=== PATIENT | female | born 1985 | race American Indian/Alaskan Native ===

== ENCOUNTER 2020-08-23 18:34 | Emergency (ER) | payer SELFPAY ==
[2020-08-23 19:17] VITALS: BP 133/79
[2020-08-23] MEDS ORDERED: TETRACAINE 0.5% OPHTH SOLN 4ML OU PRN (20:40)
[2020-08-23] MEDS ORDERED: IBUPROFEN 600 MG TAB PO ONE (20:40)
[2020-08-23] MEDS ORDERED: FLUORESCEIN 1 MG STRIP OP ONE (20:40)
[2020-08-24] MEDS ORDERED: FLUORESCEIN 1 MG STRIP OP ONE (02:19)
--- NOTE | 2020-08-24 03:50 | Emergency Department Report ---
ED Eye Problem HPI - General Chief complaint: Eye Problems Stated complaint: RT EYE INJURY Source: patient Mode of arrival: Ambulatory Limitations: Language Barrier - History of Present Illness Initial comments: Patient is a 34-year-old female with no past medical history presents to the ED with complaint of acute onset persistent severe bilateral eye pain, worse in the right eye with thick purulent discharge bilaterally for 2 days after a piece of debris entered accidentally into her right eye. Patient states that she has been feeling foreign body sensation in the right eye with photophobia and that she developed purulent bilateral eye discharge in the last 24 hours. Patient denies vision loss, headache, fever, chills, nausea, vomiting, dizziness, syncope or traumatic injury. MD chief complaint: eye pain, eye redness, eye injury, other (purulent discharge bilaterally) -: Sudden, days(s) (2) Onset Description: sudden, other (debris entered right eye) Location: right eye Place: home If Injury: other (debris entered right eye 2 days ago) Eye Symptoms: burning, redness, pain, foreign body sensation, discharge, photophobia Severity: severe Severity scale (0 -10): 7 If Pain, Quality: sharp, throbbing Consistency: constant Context: injury Associated Symptoms: denies: headache, neck pain, nausea/vomiting, cough, rhinorrhea, fever, shortness of breath Treatments Prior to Arrival: irrigated eye - Related Data Patient Tetanus UTD: Yes Previous Rx's Medication Instructions Recorded Last Taken Type Ciprofloxacin HCl [Ciloxan] 1 drop OP Q4H #5 ml 08/24/20 Unknown Rx Ibuprofen [Motrin] 800 mg PO Q8HR PRN #24 tablet 08/24/20 Unknown Rx Allergies Allergy/AdvReac Type Severity Reaction Status Date / Time No Known Allergies Allergy Unverified 08/24/20 02:19 ED Review of Systems ROS: Stated complaint: RT EYE INJURY Other details as noted in HPI Constitutional: denies: chills, fever Eyes: eye pain (Right thigh pain), eye discharge (Bilateral eye purulent discharge). denies: vision change ENT: denies: ear pain, throat pain Respiratory: denies: cough, shortness of breath, wheezing Cardiovascular: denies: chest pain, palpitations Endocrine: no symptoms reported Gastrointestinal: denies: abdominal pain, nausea, vomiting, diarrhea Genitourinary: denies: urgency, dysuria, discharge Musculoskeletal: denies: back pain, joint swelling, arthralgia Skin: denies: rash, lesions Neurological: denies: headache, weakness, paresthesias Psychiatric: denies: anxiety, depression Hematological/Lymphatic: denies: easy bleeding, easy bruising ED Past Medical Hx - Medications Home Medications: Home Medications Medication Instructions Recorded Confirmed Last Taken Type Ciprofloxacin HCl [Ciloxan] 1 drop OP Q4H #5 ml 08/24/20 Unknown Rx Ibuprofen [Motrin] 800 mg PO Q8HR PRN #24 tablet 08/24/20 Unknown Rx ED Physical Exam - General Limitations: Language Barrier General appearance: alert, in no apparent distress - Head Head exam: Present: atraumatic, normocephalic, normal inspection - Eye Eye exam: Present: PERRL, EOMI, other (Erythematous bilateral conjunctival with thick purulent discharge in the right eye photophobia; [place] lamp exam is unremarkable with no sign of corneal abrasion bilaterally) Pupils: Present: normal accommodation - ENT ENT exam: Present: normal exam, normal orophraynx, mucous membranes moist, TM's normal bilaterally, normal external ear exam - Neck Neck exam: Present: normal inspection, full ROM - Respiratory Respiratory exam: Present: normal lung sounds bilaterally. Absent: respiratory distress, wheezes, rales, rhonchi, chest wall tenderness, accessory muscle use, decreased breath sounds, prolonged expiratory - Cardiovascular Cardiovascular Exam: Present: regular rate, normal rhythm, normal heart sounds. Absent: systolic murmur, diastolic murmur, rubs, gallop - GI/Abdominal GI/Abdominal exam: Present: soft, normal bowel sounds. Absent: tenderness, guarding, rebound, hyperactive bowel sounds, organomegaly - Extremities Exam Extremities exam: Present: normal inspection, full ROM, normal capillary refill - Back Exam Back exam: Present: normal inspection, full ROM. Absent: tenderness, muscle spasm, paraspinal tenderness - Neurological Exam Neurological exam: Present: alert, oriented X3, CN II-XII intact, normal gait, reflexes normal - Psychiatric Psychiatric exam: Present: normal affect, normal mood - Skin Skin exam: Present: warm, dry, intact, normal color. Absent: rash ED Course Vital Signs 08/23/20 19:15 Temperature 98.6 F Pulse Rate 78 Respiratory 20 Rate Blood Pressure 133/79 O2 Sat by Pulse 99 Oximetry ED Medical Decision Making - Medical Decision Making This is a 34-year-old female with no past medical history presents to the ED with complaint of acute onset persistent severe bilateral eye pain, worse in the right eye with thick purulent discharge bilaterally for 2 days after a piece of debris entered accidentally into her right eye. Patient states that she has been feeling foreign body sensation in the right eye with photophobia and that she developed purulent bilateral eye discharge in the last 24 hours. In the ED, patient is alert and oriented x3 and is not in any distress. [place]iah lamp exam with fluorescein dye is unremarkable with no sign of corneal abrasion bilaterally. Patient was treated for pain in the ED and tetracaine ophthalmic solution drops were also applied to the eyes bilaterally for anesthesia purposes. Patient symptoms are likely due to bilateral bacterial conjunctivitis following right eye injury. Patient's visual acuity is however intact and unremarkable. Patient was therefore discharged home on pain medications and antibiotic eyedrops and was advised to follow-up with her primary care physician in 7 to 10 days for reevaluation. Patient was also given a referral to an technical consultant Dr. Roca for follow-up in 3 to 5 days. Patient was advised return to the ED immediately if symptoms get worse. - Differential Diagnosis conjunctivitis; eye injury; corneal abrasion; keratitis Critical care attestation.: If time is entered above; I have spent that time in minutes in the direct care of this critically ill patient, excluding procedure time. ED Disposition Clinical Impression: Acute bacterial conjunctivitis of both eyes Superficial injury of right eye Qualifiers: Encounter type: initial encounter Qualified Code(s): S05.8X1A - Other injuries of right eye and orbit, initial encounter Disposition: DC-01 TO HOME OR SELFCARE Is pt being admited?: No Does the pt Need Aspirin: No Condition: Stable Instructions: Bacterial Conjunctivitis, Adult, [id number] Additional Instructions: Aplique el medicamento en los ojos afectados kenny se recomienda, jessica muchos lquidos analgsicos segn sea necesario por va oral y avtar un seguimiento con el oftalmlogo en 3 a 5 walls para glen reevaluacin. Avtar un seguimiento con perez mdico de atencin primaria en 5 a 7 walls para glen reevaluacin. Regrese al servicio de urgencias de inmediato si los sntomas empeoran. Prescriptions: Ciprofloxacin HCl [Ciloxan] 1 drop OP Q4H #5 ml Ibuprofen [Motrin] 800 mg PO Q8HR PRN #24 tablet PRN Reason: Pain , Severe (7-10) Referrals: JAQUI ROCA MD [Staff Physician] - 3-5 Days [facility] [Provider Group] - 7-10 days Time of Disposition: 03:58 Print Language: YORUBA
== END 2020-08-24 04:05 | disposition home or self-care (01) ==
LOC: ED 18:34
DX: S05.8X1A Other injuries of right eye and orbit, initial encounter (principal); H10.33 Unspecified acute conjunctivitis, bilateral; Z79.899 Other long term (current) drug therapy; W45.8XXA Other foreign body or object entering through skin, initial encounter; Y93.89 Activity, other specified; Y92.89 Other specified places as the place of occurrence of the external cause; Y99.8 Other external cause status
CPT/HCPCS: 99283